=== PATIENT | female | born 1960 | race Caucasian/White ===

== ENCOUNTER 2018-06-15 22:07 | Emergency (ER) | payer MEDICARE, MEDICAID ==
[~2018-06-15] VITALS: Ht 604 cm; Wt 100.0 kg
[~2018-06-15 22:07] MED LIST: HYDR-569 PO; NAPR-1144 PO; ONDA4TAB6 PO
[2018-06-15] MEDS ORDERED: ondansetron/PF 4mg/2ml inj IV ONE (22:25)
[2018-06-15] MEDS ORDERED: morphine 4 MG/ML inj SYRINge IV ONE ×2 (22:25→23:35)
[2018-06-15] MEDS ORDERED: normal saline 1000ML IV soln IVB ONE (22:25)
[2018-06-15 22:29] LABS: BASOPHILS # (AUTO) 0.1 X10'3 (0-0.2); BASOPHILS % (AUTO) 0.9 % (0-1); EOSINOPHILS # (AUTO) 0.4 X10'3 (0-0.9); HEMATOCRIT 42.5 % (35.0-45.0); HEMOGLOBIN 14.4 g/dl (12.0-16.0); LYMPHOCYTES % (AUTO) 35.2 % (21-51); MEAN CORPUSCULAR HEMOGLOBIN 28.6 PG (27.0-31.0); MEAN CORPUSCULAR VOLUME 84.3 FL (78-98); MEAN PLATELET VOLUME 8.3 FL (7.4-10.4); MONOCYTES # (AUTO) 0.6 X10'3 (0-0.9); MONOCYTES % (AUTO) 4.6 % (2-12); NEUTROPHILS # (AUTO) 7.9 X10'3 (1.8-7.7); NEUTROPHILS % (AUTO) 56.3 % (42-75); PLATELET COUNT 279 X10'3 (140-440); RED BLOOD COUNT 5.04 X10'6 (4.20-5.60); WHITE BLOOD COUNT 14.1 X10'3 (4.5-11.0)
[2018-06-15 22:44] LABS: ALANINE AMINOTRANSFERASE 24 U/L (12-78); ALBUMIN 3.6 G/DL (3.4-5.0); ALBUMIN/GLOBULIN RATIO 0.9 (1.1-1.5); ALKALINE PHOSPHATASE 116 IU/L (46-116); ANION GAP 8 (8-16); ASPARTATE AMINO TRANSFERASE 14 U/L (10-37); BILIRUBIN,TOTAL 0.2 MG/DL (0.1-1.0); BLOOD UREA NITROGEN 15 MG/DL (7-18); BUN/CREATININE RATIO 15.6 (6.6-38.0); CALCIUM 8.5 MG/DL (8.5-10.1); CHLORIDE 104 MMOL/L (99-107); CREATININE 0.96 MG/DL (0.40-0.90); GLUCOSE 158 MG/DL (70-104); LIPASE 199 U/L (73-393); POTASSIUM 3.7 MMOL/L (3.5-5.1); SODIUM 138 MMOL/L (135-145); TOTAL CARBON DIOXIDE 26.5 MMOL/L (24-32); TOTAL PROTEIN 7.6 G/DL (6.4-8.2); eGFR 60 ML/MIN
[2018-06-16] MEDS ORDERED: HYDR-569 PO (00:43)
[2018-06-16] MEDS ORDERED: HYDROcodone/acetaminophen 10/325mg tab PO ONE (00:45)
[2018-06-16 00:58] VITALS: BP 144/84
== END 2018-06-16 01:00 | disposition home or self-care (01) ==
LOC: ER 22:07
DX: K80.50 Calculus of bile duct without cholangitis or cholecystitis without obstruction (principal); R10.11 Right upper quadrant pain; I48.91 Unspecified atrial fibrillation; I10 Essential (primary) hypertension; E11.9 Type 2 diabetes mellitus without complications; F17.200 Nicotine dependence, unspecified, uncomplicated; Z90.49 Acquired absence of other specified parts of digestive tract; Z90.710 Acquired absence of both cervix and uterus; Z98.890 Other specified postprocedural states; Z88.0 Allergy status to penicillin; Z88.5 Allergy status to narcotic agent; Z88.6 Allergy status to analgesic agent
CPT/HCPCS: 36415; 80053; 83690; 85025; 85610; 96374; 96375; 96376; 99285; J2270; J2405; J7030

== ENCOUNTER 2019-02-24 12:28 | Emergency (ER) | payer MEDICARE, MEDICAID ==
[~2019-02-24] VITALS: Ht 180.3 cm; Wt 100.0 kg
[~2019-02-24 12:28] MED LIST changes: +HYDR-4383 PO; -HYDR-569 PO
--- NOTE | 2019-02-24 14:40 | NUR ---
Doris mojica in ED - 02/24/19 at [address] CAI AT BEDSIDE TO ASSESS PT AND DISCUSS PLAN OF CARE.
--- NOTE | 2019-02-24 14:40 | NUR ---
Doris mojica in [facility] - 02/24/19 at [address] KAPLAN AT [facility]
--- NOTE | 2019-02-24 14:40 | NUR ---
DR ROBERTSON AT BEDSIDE TO ASSESS PT AND DISCUSS PLAN OF CARE.
[2019-02-24] MEDS ORDERED: ketorolac trometh. 30mg/ml inj. IM ONE (14:45)
--- NOTE | 2019-02-24 15:10 | NUR ---
PATIENT TO CT VIA WHEELCHAIR
--- NOTE | 2019-02-24 15:31 | NUR ---
PATIENT RETURNED TO ROOM FOR CT BACK TO BED
[2019-02-24 16:12] VITALS: BP 133/97
== END 2019-02-24 17:07 | disposition home or self-care (01) ==
LOC: ER 12:28
DX: M25.551 Pain in right hip (principal); R20.0 Anesthesia of skin; M16.11 Unilateral primary osteoarthritis, right hip; I49.9 Cardiac arrhythmia, unspecified; I10 Essential (primary) hypertension; E11.9 Type 2 diabetes mellitus without complications; Z90.49 Acquired absence of other specified parts of digestive tract; Z90.710 Acquired absence of both cervix and uterus; Z98.890 Other specified postprocedural states; Z88.0 Allergy status to penicillin; Z88.5 Allergy status to narcotic agent; Z88.8 Allergy status to other drugs, medicaments and biological substances; Z79.899 Other long term (current) drug therapy; W18.39XA Other fall on same level, initial encounter; Y93.89 Activity, other specified; Y92.89 Other specified places as the place of occurrence of the external cause; Y99.8 Other external cause status
CPT/HCPCS: 72131; 73502; 73700; 96372; 99284; J1885

== ENCOUNTER 2019-09-09 21:29 | Emergency (ER) | payer MEDICARE, MEDICAID ==
[~2019-09-09] VITALS: Ht 179.7 cm; Wt 103.0 kg
[2019-09-09 22:08] LABS: BASOPHILS # (AUTO) 0.2 X10'3 (0-0.2); BASOPHILS % (AUTO) 1.3 % (0-1); EOSINOPHILS # (AUTO) 0.4 X10'3 (0-0.9); EOSINOPHILS % (AUTO) 2.8 % (0-6); HEMOGLOBIN 14.7 g/dl (12.0-16.0); LYMPHOCYTES # (AUTO) 4.4 X10'3 (1.1-4.8); LYMPHOCYTES % (AUTO) 34.8 % (21-51); MEAN CORPUSCULAR HEMOGLOBIN 29.8 PG (27.0-31.0); MEAN CORPUSCULAR HGB CONC 34.3 g/dL (33.0-36.5); MEAN CORPUSCULAR VOLUME 86.9 FL (78-98); MEAN PLATELET VOLUME 8.3 FL (7.4-10.4); MONOCYTES # (AUTO) 0.8 X10'3 (0-0.9); NEUTROPHILS # (AUTO) 6.9 X10'3 (1.8-7.7); NEUTROPHILS % (AUTO) 55.1 % (42-75); PLATELET COUNT 286 X10'3 (140-440); RED BLOOD COUNT 4.95 X10'6 (4.20-5.60); RED CELL DISTRIBUTION WIDTH 13.7 % (11.5-14.5); WHITE BLOOD COUNT 12.6 X10'3 (4.5-11.0)
[2019-09-09 22:19] LABS: ALANINE AMINOTRANSFERASE 26 U/L (12-78); ALKALINE PHOSPHATASE 129 IU/L (46-116); ANION GAP 9 (8-16); ASPARTATE AMINO TRANSFERASE 16 U/L (10-37); BILIRUBIN,TOTAL 0.3 MG/DL (0.1-1.0); BLOOD UREA NITROGEN 14 MG/DL (7-18); BUN/CREATININE RATIO 11.9 (6.6-38.0); CALCIUM 8.9 MG/DL (8.5-10.1); CHLORIDE 101 MMOL/L (99-107); CREATININE 1.18 MG/DL (0.40-0.90); GLUCOSE 265 MG/DL (70-104); POTASSIUM 3.6 MMOL/L (3.5-5.1); SODIUM 140 MMOL/L (135-145); TOTAL CARBON DIOXIDE 30.2 MMOL/L (24-32); TOTAL PROTEIN 7.9 G/DL (6.4-8.2); eGFR 47 ML/MIN
[2019-09-09] MEDS ORDERED: dexamethasone sod phosphate 10mg/ml inj IV STA (22:38)
[2019-09-09] MEDS ORDERED: ketorolac trometh. 30mg/ml inj. IV ONE (22:40)
[2019-09-09 22:54] VITALS: BP 151/93
== END 2019-09-09 22:55 | disposition home or self-care (01) ==
LOC: ER 21:29
DX: M25.512 Pain in left shoulder (principal); I48.91 Unspecified atrial fibrillation; I10 Essential (primary) hypertension; E11.9 Type 2 diabetes mellitus without complications; Z90.49 Acquired absence of other specified parts of digestive tract; Z90.710 Acquired absence of both cervix and uterus; Z98.890 Other specified postprocedural states; Z88.0 Allergy status to penicillin; Z88.5 Allergy status to narcotic agent; Z88.8 Allergy status to other drugs, medicaments and biological substances; Z91.041 Radiographic dye allergy status; Z79.899 Other long term (current) drug therapy
CPT/HCPCS: 36415; 71045; 80053; 84484; 85025; 93005; 96374; 96375; 99284; J1100; J1885

== ENCOUNTER 2021-04-25 08:00 | Emergency (ER) | payer MEDICARE, MEDICAID ==
[~2021-04-25] VITALS: Ht 180.3 cm; Wt 100.0 kg
[2021-04-25] MEDS ORDERED: diazepam 5mg tablet PO ONE (11:30)
[2021-04-25] MEDS ORDERED: ketorolac trometh inj. 60 MG/2 ML VIAL IM ONE (11:30)
[2021-04-25] MEDS ORDERED: ketorolac trometh. 30mg/ml inj. IM ONE (11:35)
--- NOTE | 2021-04-25 12:10 | NUR ---
pt c/o left hip pain s/p fall one week ago, left leg is numb today, able to amb with slight limp, c/o left buttock pain, no loss of bowel/bladder, just got back from [place]
[2021-04-25] MEDS ORDERED: DIAZ5TAB22 PO (12:57)
[2021-04-25 13:12] VITALS: BP 119/79
== END 2021-04-25 13:05 | disposition home or self-care (01) ==
LOC: ER 08:00
DX: M48.062 Spinal stenosis, lumbar region with neurogenic claudication (principal); M47.816 Spondylosis without myelopathy or radiculopathy, lumbar region; R94.8 Abnormal results of function studies of other organs and systems; M25.552 Pain in left hip; I48.91 Unspecified atrial fibrillation; I10 Essential (primary) hypertension; E11.9 Type 2 diabetes mellitus without complications; F17.200 Nicotine dependence, unspecified, uncomplicated; Z85.9 Personal history of malignant neoplasm, unspecified; Z90.89 Acquired absence of other organs; Z90.710 Acquired absence of both cervix and uterus; Z88.8 Allergy status to other drugs, medicaments and biological substances; Z88.5 Allergy status to narcotic agent; Z79.899 Other long term (current) drug therapy
CPT/HCPCS: 72131; 96372; 99284; J1885